=== PATIENT | male | born 1990 | race Hispanic/Latino ===

== ENCOUNTER 2017-12-28 08:08 | Emergency (ER) | payer MEDICAID ==
[2017-12-28 08:13] VITALS: BP 135/78; PULSE 62; RESP 17; TEMP 98.4
[2017-12-28 08:14] VITALS: O2SAT 98
--- NOTE | 2017-12-28 09:07 | ED PDOC ---
HPI: Back Time Seen by Provider: 12/28/17 08:31 Chief Complaint (Nursing): Back Pain Chief Complaint (Provider): Back Pain History Per: Patient History/Exam Limitations: no limitations Onset/Duration Of Symptoms: Days (2x) Current Symptoms Are (Timing): Still Present Quality Of Discomfort: "Pain" Exacerbating Factor(s): Movement Additional Complaint(s): 27 year old male presents to the ER for an evaluation of lower back pain onset for 2 days. 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 He reports the back pain worsens with movement or getting up but alleviates when lying down. He denies numbness, tingling, incontinence, stool incontinence, headache, dizziness, nausea, vomiting or any other urinary problems. PMD: Dr. Egan ([address] [place] [address]) Past Medical History Reviewed: Historical Data, Nursing Documentation, Vital Signs Vital Signs: Last Vital Signs Temp 98.4 F 12/28/17 08:11 Pulse 62 12/28/17 08:11 Resp 17 12/28/17 08:11 BP 135/78 12/28/17 08:11 Pulse Ox 98 12/28/17 08:12 - Medical History PMH: No Chronic Diseases Denies: Chronic Kidney Disease - Surgical History Surgical History: Tonsillectomy Other surgeries: hand surgery and hernia surgery - Family History Family History: States: Unknown Family Hx - Social History Current smoker - smoking cessation education provided: No Alcohol: None Drugs: Cannabis - Home Medications Home Medications: Ambulatory Orders Medication Instructions Recorded Cyclobenzaprine [Cyclobenzaprine 10 mg PO TID #30 tab 12/28/17 HCl] Naproxen [Naprosyn] 500 mg PO BID PRN #20 tablet 12/28/17 - Allergies Allergies/Adverse Reactions: Allergies Allergy/AdvReac Type Severity Reaction Status Date / Time No Known Allergies Allergy Verified 12/28/17 08:12 Review of Systems ROS Statement: Except As Marked, All Systems Reviewed And Found Negative Gastrointestinal: Negative for: Nausea, Vomiting, Diarrhea Genitourinary Male: Negative for: Dysuria, Frequency, Incontinence, Hematuria Musculoskeletal: Positive for: Back Pain Neurological: Negative for: Weakness, Numbness, Headache, Dizziness, Other ( tingling ) Physical Exam - Reviewed Nursing Documentation Reviewed: Yes Vital Signs Reviewed: Yes - Physical Exam Appears: Positive for: Non-toxic, No Acute Distress Head Exam: Positive for: ATRAUMATIC, NORMAL INSPECTION, NORMOCEPHALIC Skin: Positive for: Normal Color, Warm, Dry Eye Exam: Positive for: EOMI, Normal appearance, PERRL ENT: Positive for: Normal ENT Inspection Neck: Positive for: Normal, Painless ROM, Supple. Negative for: Decreased ROM Cardiovascular/Chest: Positive for: Regular Rate, Rhythm. Negative for: Murmur Respiratory: Positive for: Normal Breath Sounds. Negative for: Decreased Breath Sounds, Wheezing, Respiratory Distress Gastrointestinal/Abdominal: Positive for: Normal Exam, Soft. Negative for: Tenderness, Guarding, Rebound Back: Positive for: Normal Inspection Extremity: Positive for: Normal ROM. Negative for: Tenderness, Pedal Edema Neurologic/Psych: Positive for: Alert, Oriented (x3). Negative for: Motor/ Sensory Deficits - ECG O2 Sat by Pulse Oximetry: 98 (RA) Pulse Ox Interpretation: Normal Medical Decision Making Medical Decision Making: Time: 852 Initial Impression: muscular lower back pain Initial Plan: --Flexeril 10mg --Tylenol 650mg --Reevaluation Scribe Attestation: Documented by Kyra Lopez, acting as a scribe for Chyna Connor MD Provider Scribe Attestation: All medical record entries made by the Scribe were at my direction and personally dictated by me. I have reviewed the chart and agree that the record accurately reflects my personal performance of the history, physical exam, medical decision making, and the department course for this patient. I have also personally directed, reviewed, and agree with the discharge instructions and disposition. Disposition - Clinical Impression Clinical Impression: Acute back pain - Patient ED Disposition Is Patient to be Admitted: No Doctor Will See Patient In The: Office Counseled Patient/Family Regarding: Diagnosis, Need For Followup, Rx Given - Disposition Referrals: [facility] Quintero [Outside] Gareth Egan MD [Family Provider] - Disposition: Routine/Home Disposition Time: 09:05 Condition: STABLE Prescriptions: Cyclobenzaprine [Cyclobenzaprine HCl] 10 mg PO TID #30 tab Naproxen [Naprosyn] 500 mg PO BID PRN #20 tablet PRN Reason: Pain, Moderate (4-7) Instructions: Low Back Pain in Adults Forms: Mejia Vega (Persian), [facility] ED School/Work Excuse - POA Present On Arrival: None
== END 2017-12-28 09:26 | disposition home or self-care (01) ==
LOC: H.ER 08:08
DX: M54.5 Low back pain (principal)